=== PATIENT | female | born 1950 ===

== ENCOUNTER → 2019-03-21 | Day surgery (SDC) | payer OTHER ==
[~2019-03-21] MED LIST: ACCUPRIL40 MG PO; AVAPRO150 MG PO; SYNTHROID125 MCG PO; TENORMIN100 M1 PO
== END | disposition home or self-care (01) ==
LOC: ADM 03-07 10:15 → CIR.AMB 03-14 10:15
DX: N84.0 Polyp of corpus uteri (principal); N72 Inflammatory disease of cervix uteri